=== PATIENT | male | born 1960 | race Caucasian/White ===

== ENCOUNTER 2019-12-31 13:07 | Emergency (ER) | payer OTHER ==
[~2019-12-31] VITALS: Ht 180.3 cm; Wt 64.0 kg
[2019-12-31 13:29] VITALS: BP 114/65
[2019-12-31] MEDS ORDERED: DEXAMETHASONE 4 MG TABLET PO ONE (14:00)
== END 2019-12-31 14:14 | disposition home or self-care (01) ==
LOC: ED 13:20
DX: J02.0 Streptococcal pharyngitis (principal)
CPT/HCPCS: 99283